=== PATIENT | male | born 1970 | race African-American/Black ===

== ENCOUNTER 2016-09-26 10:00 | Emergency (ER) | payer OTHER ==
[2016-09-26 10:09] VITALS: BP 157/52; PULSE 86; TEMP 98.1; BMI 24.4
--- NOTE | 2016-09-26 11:00 | PDOC ---
History of Present Illness - General Chief Complaint: Back Pain Stated Complaint: BACK PAIN Time Seen by Provider: 09/26/16 10:36 History Source: Patient Exam Limitations: No Limitations - History of Present Illness Initial Comments: CHIEF COMPLAINT: 46 y/o male with previous open heart surgery (on aspirin) c/o left low back pain x 3 days. HISTORY OF PRESENT ILLNESS: The patient states the pain travels down to his left outer thigh. He denies trauma to back, fall, f/c, n/v/d, hematuria, dysuria, saddle anesthesia, numbness/tingling in lower extremities. Vital signs on arrival are within normal limits. REVIEW OF SYSTEMS: GENERAL/CONSTITUTIONAL: No fever/chills. No weakness. No weight change. HEAD, EYES, EARS, NOSE AND THROAT: No change in vision. No ear pain or discharge. No sore throat. CARDIOVASCULAR: No chest pain or shortness of breath. RESPIRATORY: No cough, wheezing, or hemoptysis. GASTROINTESTINAL: No abd pain, nausea, vomiting, diarrhea. GENITOURINARY: No dysuria, frequency, or change in urination. MUSCULOSKELETAL: No joint or muscle swelling or pain. No neck pain. + left low back pain with left leg pain. SKIN: No rash or easy bruising. NEUROLOGIC: No headache, vertigo, loss of consciousness, or loss of sensation. PHYSICAL EXAM: GENERAL: The patient is awake, alert, and fully oriented, in no acute distress. He is ambulatory with normal gait. HEAD: Normal with no signs of trauma. EYES: Pupils equal, round and reactive to light, extraocular movements intact, sclera anicteric, conjunctiva clear. BACK: No midline lumbar spine TTP or step offs. Full flexion and extension of lumbar spine. Pain reproduced with lateral movements of lumbar spine. TTP of left lumbar paravertebral muscles. EXTREMITIES: Normal range of motion, no edema. NEUROLOGICAL: Normal speech, normal gait. No saddle anesthesia. Equal straight leg raise b/l LEs. 2+ LE reflexes b/l. PSYCH: Normal mood, normal affect. SKIN: Warm, Dry, normal turgor, no rashes or lesions noted. Past History - Past Medical History Allergies/Adverse Reactions: Allergies Allergy/AdvReac Type Severity Reaction Status Date / Time No Known Allergies Allergy Verified 09/26/16 10:09 Home Medications: Ambulatory Orders Aspirin [ASA -] 81 mg PO DAILY 09/26/16 Methocarbamol [Robaxin -] 1,000 mg PO TID #18 tablet 09/26/16 Cardiac Disorders: Yes HTN: Yes Suicide Attempt (Hx): No - Surgical History Cardiac Surgery: Yes (OPEN HEART SX) - Immunization History Immunization Up to Date: No - Psycho/Social/Smoking Cessation Hx Anxiety: No Suicidal Ideation: No Smoking Status: No Smoking History: Current some day smoker Number of Cigarettes Smoked Daily: 1 Cigars Per Day: 1 Information on smoking cessation initiated: No Hx Alcohol Use: No Drug/Substance Use Hx: Yes Substance Use Type: Marijuana *Physical Exam - Vital Signs Last Vital Signs Temp Pulse Resp BP Pulse Ox 98.1 F 86 16 157/52 97 09/26/16 10:05 09/26/16 10:05 09/26/16 10:05 09/26/16 10:05 09/26/16 10:05 Medical Decision Making - Medical Decision Making A/P: 46 y/o male with left low back pain with sciatica. Suggested tylenol for pain and will send rx for robaxin. Informed the patient robaxin may cause drowsiness. Instructed him to avoid heavy lifting, f/u with his PCP within 1 week and return to the ER with any worsening or concerning symptoms. The patient verbalizes understanding of all instructions, has no further questions and is awaiting discharge. *DC/Admit/Observation/Transfer Diagnosis at time of Disposition: Low back pain with sciatica Qualifiers: Chronicity: acute Back pain laterality: left Sciatica laterality: sciatica of left side Qualified Code(s): M54.42 - Lumbago with sciatica, left side - Prescriptions Prescriptions: Methocarbamol [Robaxin -] 1,000 mg PO TID #18 tablet - Referrals Referrals: Dusty Grimaldo MD [Primary Care Provider] - - Patient Instructions Printed Discharge Instructions: DI for Back Pain With Sciatica Additional Instructions: Discharge Instructions: -Take Robaxin as prescribed if needed for low back pain -You can also take Tylenol for your low back pain -Apply heating pad and massage to low back -Avoid heavy lifting -Return to the ER with any worsening or concerning symptoms
== END 2016-09-26 11:08 | disposition home or self-care (01) ==
LOC: JERFT 10:00
DX: M54.42 Lumbago with sciatica, left side (principal); I10 Essential (primary) hypertension; Z95.1 Presence of aortocoronary bypass graft
CPT/HCPCS: 99281-25